=== PATIENT | female | born 1965 | race Caucasian/White ===

== ENCOUNTER 2018-04-26 01:15 | Emergency (ER) | payer SELFPAY ==
[~2018-04-26] VITALS: Ht 170.2 cm; Wt 72.6 kg
[2018-04-26] MEDS ORDERED: LISI-556 PO (01:33)
[2018-04-26] MEDS ORDERED: KETOROLAC 60 MG/2 ML VIAL IM ONE (02:00)
[2018-04-26] MEDS ORDERED: METH4TAB PO (02:02)
--- NOTE | 2018-04-26 02:03 | ED Hip Pain/Injury ---
General Chief Complaint: Hip/Pelvic Problems Stated Complaint: L HIP PAIN Nursing Triage Note: left hip pain, no injury Source: patient (PT IS DIFFICULT HISTORIAN AND DIFFICULT TO KEEP ON SUBJECT, SPEECH RAPID, SLURRED AND MUMBLED) History of Present Illness Date Seen by Provider: Apr 26, 2018 Time Seen by Provider: 01:30 Initial Comments PT ARRIVES VIA POV C/O LEFT HIP PAIN FOR 3 1/2 HOURS STATES SHE IS MOVING FROM [place] TO [place], [place] TONIGHT PT DENIES ANY INJURIES STATES SHE HAS BEEN PACKING AND MOVING FURNITURE AND COOKING AND WASHING "AND ALL KINDS OF STUFF" AND TONIGHT SHE WAS SWEEPING THE KITCHEN WHEN HER LEFT HIP SUDDENLY BEGAN HURTING NO RADIATION OF PAIN NO PARESTHESIAS OR MOTOR DEFICITS NO PRIOR INJURY OR PROBLEMS WITH THIS HIP PT STATES SHE HAS HAD "2 WHISKEYS" TONIGHT PT INITIALLY STATED THAT SHE HAD NOT TAKEN ANYTHING FOR PAIN, BUT THEN STATES SHE TOOK 4 NAPROXEN AT 10 AM "FOR SWELLING" AND AGAIN AT 1600 TONIGHT "FOR SWELLING" PT ALSO STATES SHE HAS BEEN OUT OF HER BLOOD PRESSURE MEDICATION FOR A FEW DAYS , AND SHE HAS BEEN SWELLING ALL OVER, BUT SHE IS DRINKING ALOT OF WATER. -- REPEATS THIS MULTIPLE TIMES Other PCP: [facility] Allergies and Home Medications Allergies Coded Allergies: No Known Drug Allergies (Unverified , 04/26/18) Home Medications Lisinopril 5 Mg Tablet, Unknown Dose PO DAILY, (Reported) Methylprednisolone 4 Mg Tab.ds.pk, 4 MG PO UD Prescribed by: TRISHA CHAMBERS on 04/26/18 0202 Patient Home Medication List Home Medication List Reviewed: Yes Review of Systems Constitutional: no symptoms reported Respiratory: no symptoms reported Cardiovascular: no symptoms reported Musculoskeletal: see HPI Skin: no symptoms reported Psychiatric/Neurological: No Symptoms Reported Past Ugvfwuh-Sahevi-Sulejk Hx Patient Social History Alcohol Use: Occasionally Uses Alcohol Beverage of Choice: Whiskey Recreational Drug Use: No Smoking Status: Never a Smoker 2nd Hand Smoke Exposure: No Recent Foreign Travel: No Contact w/Someone Who Travel: No Recent Infectious Disease Expo: No Recent Hopitalizations: No Immunizations Up To Date Tetanus Booster (TDap): Unknown Seasonal Allergies Seasonal Allergies: No Past Medical History Surgeries: No Respiratory: No Cardiac: Yes Hypertension Neurological: No Hx : 4 Hx Para: 4 Genitourinary: No Gastrointestinal: No Musculoskeletal: No Endocrine: No HEENT: No Cancer: No Psychosocial: No Integumentary: No Physical Exam Vital Signs Vital Signs - First Documented 04/26/18 01:20 Temp 97.8 Pulse 97 Resp 24 B/P (MAP) 195/118 (143) Pulse Ox 100 O2 Delivery Room Air Capillary Refill : Less Than 3 Seconds Height, Weight, BMI Height: 5'7.00" Weight: 160lbs. oz. 72.840463ca; BMI Method:Stated General Appearance: Other (VERY DRAMATIC, WAILING /SOBBING LOUDLY AT TIMES--NO TEARS , LAYING DIRECTLY ON LEFT HIP AND C/O SEVERE PAIN TO LEFT HIP. + ODOR OF ETOH, AND PT'S SPEECH IS RAPID AND SLURRED / MUMBLED. REEKS OF CIGARETTES. ) Cardiovascular: Regular Rate, Rhythm, No Edema, No Murmur, Normal Peripheral Pulses Respiratory: Normal Breath Sounds Back: Normal Inspection, No CVA Tenderness, No Vertebral Tenderness Extremity: Normal Capillary Refill, No Calf Tenderness, No Pedal Edema, Other ( TENDERNESS TO LEFT HIP--MARKEDLY EXAGGERATED PAIN RESPONSE. LAYING DIRECTLY ON LEFT HIP/ON LEFT SIDE, WITH HIPS AND KNEES FLEXED. NO EXTERNAL EVIDENCE OF TRAUMA. NO RASH TO AREA. 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 ) Progress/Results/Core Measures Results/Orders My Orders Orders - TRISHA CHAMBERS DO Pelvis With Left Hip 2-3 Views (04/26/18 01:30) Ketorolac Injection (Toradol Injection) (04/26/18 02:00) Vital Signs/I&O 04/26/18 01:20 Temp 97.8 Pulse 97 Resp 24 B/P (MAP) 195/118 (143) Pulse Ox 100 O2 Delivery Room Air Blood Pressure Mean: 143 Progress Progress Note : Progress Note PT IS ABLE TO STAND / BEAR WEIGHT ON LEFT LEG AT DISMISSAL Diagnostic Imaging Comments XRAYS PELVIS AND LEFT HIP--NO ACUTE PROCESS, PENDING RADIOLOGIST REVIEW Reviewed: Reviewed by Me Departure Impression Primary Impression: Left hip pain Additional Impressions: HTN (hypertension) Noncompliance Disposition: 01 HOME, SELF-CARE Condition: Stable Departure-Patient Inst. Referrals: NO,LOCAL PHYSICIAN (PCP/Family) Primary Care Physician Patient Instructions: Controlling Your Blood Pressure Through Lifestyle, DASH Diet, High Blood Pressure (DC), Hip Pain (DC) Add. Discharge Instructions: ALTERNATE ICE AND HEAT TO AREA AT 20 MINUTE INTERVALS ACTIVITIES TOLERATED FOLLOW UP WITH YOUR DR THIS WEEK FOR FURTHER CARE GET YOUR BLOOD PRESSURE MEDICATION REFILLED TODAY AND TAKE IT EVERY DAY PRESCRIBED All discharge instructions reviewed with patient and/or family. Voiced understanding. Scripts Methylprednisolone (Medrol) 4 Mg Tab.ds.pk 4 MG PO UD, #1 PKG Prov: TRISHA CHAMBERS DO 04/26/18 TRISHA CHAMBERS DO Apr 26, 2018 02:03
[2018-04-26 02:08] VITALS: BP 192/116
--- NOTE | 2018-04-26 09:06 | Diagnostic Imaging Report ---
INDICATION: Left hip pain. No history of trauma. FINDINGS: AP pelvis shows SI joints to be symmetrical. Pubic symphysis in good alignment. Femoral heads show normal articulation bilaterally. AP and frog-leg view of the left hip shows smooth articulating surfaces without fracture. No evidence of osteonecrosis. IMPRESSION: Normal AP pelvis and left hip. Dictated by: Dictated on workstation # [id number]
== END 2018-04-26 02:08 | disposition home or self-care (01) ==
LOC: ER 01:18
DX: M25.552 Pain in left hip (principal); I10 Essential (primary) hypertension; Z91.14 Patient's other noncompliance with medication regimen
CPT/HCPCS: 96372